=== PATIENT | female | born 1955 | race Caucasian/White ===

== ENCOUNTER 2024-03-05 13:47 | Observation (INO) | payer OTHER, SELFPAY ==
[2024-03-05] VITALS (7 sets, daily range): BP systolic 134–157; BP diastolic 71–90; PULSE 62–81; RESP 16–18; TEMP 36.5–37; O2SAT 97–100; BMI 32.4
--- NOTE | ~2024-03-05 | CT_ITS ---
EXAMINATION: CT abdomen pelvis w con DATE: 03/05/2024 15:09 INDICATION: Nausea, vomiting, diarrhea and hematochezia. TECHNIQUE: Computed tomography (CT) of the abdomen and pelvis was performed with 100 mL Omnipaque-350 intravenous contrast. Automated exposure control and iterative reconstruction technique were employe d. The dose-length product was 683.61 mGy-cm. COMPARISON: 04/07/2006 FINDINGS: Lung bases are clear. A couple calcified nodules at the left lower lobe consistent with old granuloma tous disease. Heart size is normal. No pericardial or pleural effusion. Very small sliding-type hiata l hernia. Liver, gallbladder, spleen, pancreas, bilateral adrenal glands and left kidney are normal. 6 mm right renal cyst. There is moderate colonic diverticulosis with a sigmoid predominance. There i s no adjacent inflammatory change to suggest diverticulitis. Small bowel and appendix are normal. Bl adder is normal. The uterus is not identified and has likely been surgically resected. No pathologica lly enlarged abdominal or pelvic lymphadenopathy. No free intraperitoneal gas or fluid. Upper lumbar dextroscoliosis with severe spondylosis. IMPRESSION: 1. Diverticulosis without diverticulitis or other acute intra-abdominal/pelvic process. 2. Very small sliding-type hiatal hernia. Reviewed, dictated and finalized at location A.
--- NOTE | 2024-03-05 14:10 | ECG_ITS ---
Test Date: 2024-03-05 14:24:14 Measurements Intervals [place] Rate: 67 P: 18 OH: 149 QRS: 34 QRSD: 78 T: 48 QT: 385 QTc: 409 Interpretive Statements SINUS RHYTHM No previous ECG available for comparison Electronically Signed On 03-05-2024 14:50:46 CDT by Augustine Chowdhury M.D.
--- NOTE | 2024-03-05 14:11 | ED.NAVMDI ---
HPI - Nausea/Vomiting/Diarrhea General Chief complaint: Nausea/Vomiting/Diarrhea <LANI Powers Last Filed: 03/05/24 19:28> Stated complaint: check for cdiff <Mari Brooks PA-C - Last Filed: 03/05/24 19:28> Time Seen by Provider: 03/05/24 13:58 <LANI Powers Last Filed: 03/05/24 19:28> History of Present Illness HPI Narrative: 68 y/o presents to the emergency department for concerns for C diff. Patient states she has been having diarrhea for 3 days. Patient states she was treated for strep pharyngitis by her PCP with amoxicillin a week ago. States she broke out in hives few days after the amoxicillin, discontinue the amoxicillin and started on azithromycin. States 1 day later she began having copious, malodorous, bloody and mucousy diarrhea. she is advised to come to the ED for further evaluation C diff testing. She is reporting diffuse abdominal cramping that occurs after she eats food or drinks water. She reports decreased p.o. intake. States she has never had this happen before. She does endorse a history of diverticulitis and hysterectomy. She states she had a colonoscopy February 2023 at [facility] which showed IBS and diverticula . She states she did not have any polyps and has never had significantly abnormal colonoscopies. She is not anticoagulated. She is taking diclofenac for back pain. Denies alcohol use, denies melena. She denies chest pain or shortness of breath. Denies lightheadedness or syncope but does state that she feels off balance when she stands up which is new. <Mari Brooks PA-C - Last Filed: 03/05/24 19:28> Related Data Home medications: Home Medications Medication Instructions Recorded Confirmed diclofenac sodium 75 mg 75 mg PO DAILY 03/05/24 03/05/24 tablet,delayed release pravastatin 40 mg tablet 40 mg PO DAILY 03/05/24 03/05/24 <LANI Powers Last Filed: 03/05/24 19:28> Allergies/Adverse reactions: Allergies Allergy/AdvReac Type Severity Reaction Status Date / Time amantadine Allergy Unknown Other Verified 03/05/24 16:09 rofecoxib Allergy Unknown Other Verified 03/05/24 16:09 Sulfa (Sulfonamide AdvReac Mild Other Verified 03/05/24 16:09 Antibiotics) amoxicillin AdvReac Hives Verified 03/05/24 16:09 <Mari Brooks PA-C - Last Filed: 03/05/24 19:28> Review of Systems Review of Systems: All systems reviewed & are unremarkable except as noted in HPI and below <Mari Brooks PA-C - Last Filed: 03/05/24 19:28> [facility] Social History Social History: Social History Smoking status: Former smoker Alcohol intake: never Substance use: never Substance use type: does not use Do You Feel Safe in your Home?: Yes Lack of Transportation: No Lack of Food: Never True Current Housing: I Have Housing Concerned About Future Housing: No Difficulty Paying Gas/Electric Bills: No Difficulty Paying for Meds: No Currently Unemployed: No Education: Don't Know Difficulty w/ Childcare or Family Care: No Spiritual care concerns: No <Mari Brooks PA-C - Last Filed: 03/05/24 19:28> Exam Narrative: GENERAL: Well-appearing, well-nourished, and in no acute distress. HEAD: Normocephalic, atraumatic. EYES: PERRLA and EOMI. ENT: Nares clear, no rhinorrhea or epistaxis. Mucous membranes moist. NECK: Supple. CHEST: Clear to auscultation. No respiratory distress. HEART: Regular rate and rhythm. No murmur heard. Normal peripheral pulses. ABDOMEN: Soft, nontender, nondistended, normal active bowel sounds. No rebound, guarding or rigidity. Rectal exam chaperoned by Muna Sánchez which shows gross hematochezia surrounding the anus, positive Hemoccult. No melena. Very small hemorrhoid that is nonthrombosed and nontender. EXTREMITIES: Normal range of motion. No edema. SKIN: Warm, dry, no rash. NEURO: No focal defici
[2024-03-05] MEDS: SODIUM CHLORIDE 0.9% IV 1,000 ML 999 ML IV CONT (14:36)
[2024-03-05 14:43] LABS: Basophils Absolute Auto 0.1 K/mm3 (0.0-0.1); Basophils Percent Auto 0.8 % (0.2-1.2); Eosinophils Absolute Auto 0.3 K/mm3 (0-0.3); Eosinophils Percent Auto 3.5 % (0-4.4); Hematocrit 46.2 % (37.0-47.0); Hemoglobin 15.1 g/dL (12.0-15.0); Immature Granulocyte Absolute 0.02 K/mm3 (0.00-0.031); Immature Granulocyte Percent A 0.3 % (0-0.5); Lymphocytes Absolute Auto 3.26 K/mm3 (0.9-3.2); Lymphocytes Percent Auto 41.3 % (18.3-44.2); Mean Corpuscular HGB Conc 32.7 g/dl (32-36); Mean Corpuscular Hemoglobin 30.9 pg (26-34); Mean Corpuscular Volume 94.7 fl (80-100); Mean Platelet Volume 9.4 fl (7.4-10.4); Monocytes Absolute Auto 0.6 K/mm3 (0.1-0.6); Monocytes Percent Auto 7.4 % (2.6-8.5); Neutrophils Absolute Auto 3.7 K/mm3 (1.3-6.7); Neutrophils Percent Auto 46.7 % (45.5-73.1); Platelet Count Result 308 k/mm3 (150-375); Red Blood Count 4.88 M/mm3 (4.2-5.4); Red Cell Distribution Width 13.5 % (11.5-14.5); White Blood Count 7.9 K/mm3 (4.5-10.0)
[2024-03-05 14:58] LABS: Alanine Aminotransferase 23 U/L (6-35); Albumin Level 4.5 g/dL (3.5-5.1); Alkaline Phosphatase 77 U/L (38-126); Anion Gap 11 mmol/L (4-12); Aspartate Amino Transferase 23 U/L (14-36); Bilirubin,Total 0.4 mg/dL (0.2-1.3); Blood Urea Nitrogen 17 mg/dL (7-17); Calcium 9.1 mg/dL (8.4-10.2); Carbon Dioxide 23 mmol/L (22-30); Chloride 104 mmol/L (98-107); Estimated CRCL calculation 58 ml/min; Estimated Glomerular Filt Rate > 60; Glucose 97 mg/dL (65-110); Lipase 57 U/L (23-300); Sodium 138 mmol/L (137-145)
[2024-03-05 14:59] LABS: Lactic Acid Reflex 0.9 mmol/L (0.7-2.0)
[2024-03-05 16:13] LABS: Appearance Urine Sl Cloudy (Clear); Color Urine Yellow (Yellow)
[2024-03-05 16:14] LABS: Glucose Urine UA Negative (Negative); Protein Urine Negative (Negative); Specific Grav Ur 1.015 (1.001-1.035)
[2024-03-05 16:15] LABS: Bilirubin Urine Negative (Negative); Blood Urine Trace-intact (Negative); Ketones Urine Negative (Negative); Nitrate Urine Negative (Negative); Urobilinogen Urine 0.2 mg/dL (<2.0)
[2024-03-05 16:16] LABS: Add Urine Microscopic? YES; Leukocyte Esterase Ur 2+ LEU/UL (Negative)
[2024-03-05 16:17] LABS: RBC Urine 0-2 /hpf (0-2); WBC Urine 51-75 /hpf (0-3)
[2024-03-05 16:18] LABS: Bacteria Urine 1+ /hpf; Squamous Epithelial Cell Urine Occasional /hpf (Few)
[2024-03-05 16:34] LABS: Hematocrit 43.5 % (37.0-47.0); Hemoglobin 14.7 g/dL (12.0-15.0)
--- NOTE | 2024-03-05 17:01 | PM.IMHP ---
H&P: HPI History of Present Illness Date/Time: 03/05/24 17:00 Chief Complaint: Diarrhea. Narrative: This is a very pleasant 68-year-old with history of diverticulosis and diverticulitis who presented to the emergency department for evaluation of diarrhea. The patient provides the following history. She was diagnosed with strep throat last week and was prescribed amoxicillin which she for 4 days before developing hives. At that time she was prescribed a Z-Enzo and 2 days after starting it she developed cramping abdominal pain and diarrhea admixed with mucus. She has since started passing bright red blood per rectum which is painless. After speaking with her doctor she was referred to the ED for further evaluation. She denies fever, vomiting, and dysuria. Her abdominal pain is not localized she states not feel like previous episodes of diverticulitis. To her knowledge she does not have a history of internal hemorrhoids. Weight has remained stable. No history of colon cancer or inflammatory bowel disease. She denies recent travel and sick contacts. In the ED: She was afebrile on arrival with stable vital signs. Hemoglobin and hematocrit were 15.1 and 46.2% respectively. The remainder of her labs were unremarkable. Urinalysis showed trace blood, 2+ leukocyte esterase, 51 to 75 wbc's, and trace bacteria. CT of the abdomen and pelvis showed diverticulosis without diverticulitis or other acute intra-abdominal/pelvic process any very small sliding-type hiatal hernia. She was given a L normal saline is being admitted in this setting for close monitoring and GI consult. Review of Systems Review of Systems: 12 systems were reviewed and are negative except for as per HPI. [facility], [facility] Past Medical History Medical History (Updated 03/05/24 @ 23:08 by Jamee Martines PA-C) Arthritis Diverticulitis Hyperlipidemia Social History Social History (Updated 03/05/24 @ 23:07 by Jamee Martines PA-C) Social History: Surrogate medical decision maker: Blair Schafer, sony. Code status: Full code. Smoking status: Former smoker Alcohol intake: never Substance use: never Substance use type: does not use Do You Feel Safe in your Home?: Yes Lack of Transportation: No Lack of Food: Never True Current Housing: I Have Housing Concerned About Future Housing: No Difficulty Paying Gas/Electric Bills: No Difficulty Paying for Meds: No Currently Unemployed: No Education: Don't Know Difficulty w/ Childcare or Family Care: No Spiritual care concerns: No Meds Home Medications and Allergies Home Medications Medication Instructions Recorded Confirmed Type diclofenac sodium 75 mg 75 mg PO DAILY 03/05/24 03/05/24 History tablet,delayed release pravastatin 40 mg tablet 40 mg PO DAILY 03/05/24 03/05/24 History Allergies Allergy/AdvReac Type Severity Reaction Status Date / Time amantadine Allergy Unknown Other Verified 03/05/24 16:09 rofecoxib Allergy Unknown Other Verified 03/05/24 16:09 Sulfa (Sulfonamide AdvReac Mild Other Verified 03/05/24 16:09 Antibiotics) amoxicillin AdvReac Hives Verified 03/05/24 16:09 Vital Signs Vital Signs - 24 hr 03/05/24 13:49 03/05/24 14:43 03/05/24 14:44 Temperature 97.9 F Pulse Rate 81 69 71 Respiratory Rate 16 Blood Pressure 143/77 H 138/84 134/79 Pulse Oximetry 99 Oxygen Delivery Room Air 03/05/24 14:44 03/05/24 16:40 Temperature 97.8 F Pulse Rate 78 62 Respiratory Rate 18 Blood Pressure 137/81 155/90 H Pulse Oximetry 100 Oxygen Delivery Exam Narrative: General: Well-developed, nontoxic-appearing female in the semi-Aparicio position in bed. Weight: 83 kg. BMI: 32.4. HEENT: PERRL, EOMI. Sclera anicteric. Tacky mucous membranes. Neck: Supple. Respiratory: Lungs are clear to auscultation bilaterally. Cardiovascular: Regular rate and rhythm with S1-S2. Gastrointestinal: Abdomen is soft, nontender, and nondistended with positive julius
--- NOTE | 2024-03-05 17:24 | ADMGEN ---
This patient, Ines Schafer, was admitted to 2 Medical Room 242-. Patient/family oriented to hospital policies and general routines including ID bracelet, bed and alarms, visiting hours, pain management, procedures, bathroom and other care routines, personal items, smoking policy, room service/diet, and visiting hours. Information on how to activate the Rapid Response Team has been discussed. Patient/Family are encouraged to report perceived risks to care and to ask questions if they do not understand what they are told or what they should do.
[2024-03-05] MEDS: SODIUM CHLORIDE 0.9% IV 1,000 ML 100 ML IV CONT (17:27)
[2024-03-05 22:30] LABS: Hematocrit 40.7 % (37.0-47.0); Hemoglobin 13.6 g/dL (12.0-15.0)
[2024-03-06] VITALS: PULSE 72
[2024-03-06 04:00] VITALS: PULSE 65
[2024-03-06 04:48] VITALS: BP 149/79; PULSE 61; RESP 17; TEMP 36.6; O2SAT 98
[2024-03-06 06:37] LABS: Hematocrit 42.3 % (37.0-47.0); Hemoglobin 13.9 g/dL (12.0-15.0); Mean Corpuscular HGB Conc 32.9 g/dl (32-36); Mean Corpuscular Hemoglobin 31.9 pg (26-34); Mean Platelet Volume 9.9 fl (7.4-10.4); Platelet Count Result 270 k/mm3 (150-375); Red Blood Count 4.36 M/mm3 (4.2-5.4); Red Cell Distribution Width 13.6 % (11.5-14.5); White Blood Count 7.1 K/mm3 (4.5-10.0)
[2024-03-06 06:51] LABS: Anion Gap 9 mmol/L (4-12); Blood Urea Nitrogen 18 mg/dL (7-17); Calcium 8.5 mg/dL (8.4-10.2); Carbon Dioxide 24 mmol/L (22-30); Chloride 106 mmol/L (98-107); Estimated CRCL calculation 58 ml/min; Estimated Glomerular Filt Rate > 60; Glucose 104 mg/dL (65-110); Magnesium 2.1 mg/dL (1.6-2.3); Potassium 4.1 mmol/L (3.4-5.0); Sodium 139 mmol/L (137-145)
[2024-03-06 08:00] VITALS: PULSE 75
[2024-03-06 08:01] VITALS: O2SAT 96
[2024-03-06] MEDS: PRAVASTATIN SODIUM 20 MG TABLET 40 MG PO (09:15)
--- NOTE | 2024-03-06 09:15 | WPDGICN ---
Assessment and Plan Assessment and plan (1) Diarrhea: Code(s): R19.7 - Diarrhea, unspecified Status: Acute Assessment and Plan: self-limited, probably induce by antibiotics she has not been able to give any more stool sample since diarrhea already stopped she can be discharged and follow-up with pcp no need to repeat colonoscopy (she has been always getting her colonoscopy on time, last time 1 year ago) (2) Diverticulosis: Code(s): K57.90 - Diverticulosis of intestine, part unspecified, without perforation or abscess without bleeding Status: Acute Assessment and Plan: no diverticulisis (3) Mucus in stool: Code(s): R19.5 - Other fecal abnormalities Status: Acute Assessment and Plan: probably scan blood in stool from frequent BM, ? perianal normal h/h (4) History of streptococcal sore throat: Code(s): Z87.09 - Personal history of other diseases of the respiratory system Status: Acute GI Consult Note Consult date/time: 03/06/24 09:15 Reason for consult: diarrhea HPI: Ines Schafer is a 68 year old female with previous history of diverticulitis and last colonoscopy about 1 year ago without polyp. Recently diagnosed with Strept throat and given amoxicillin but developed hives then her PCP prescribed Z-pack but she developed 18 hours of diarrhea with mucus and small amount of blood, her PCP advised to go to ER, CT scan no colitis, cbc/cmp normal. She was admitted but no abdominal pain and has not had any more bowel movements. Denies fever and she is back to her baseline. Review of Systems Constitutional: Constitutional: Denies headache(s) and Denies weakness Eyes: Eyes: Denies blurry vision ENT: Reports Normal hearing present, Denies headache(s) and Denies neck pain Cardiovascular: Cardiovascular: Denies chest pain and Denies dyspnea Respiratory: Respiratory: Denies dyspnea Gastrointestinal: Gastrointestinal: Reports no additional gastrointestinal complaints Genitourinary: Genitourinary: Denies dysuria Musculoskeletal: Musculoskeletal: Denies neck pain Integumentary/Breasts: Skin/Breast: Denies dry skin Neurologic: Reports Normal hearing present, Denies headache(s) and Denies weakness Psychiatric: Psychiatric: Denies anxiety Endocrine: Endocrine: Denies change in body appearance Hematologic/Lymphatic: Hematologic/Lymphatic: Denies easy bleeding Allergic/Immunologic: Allergic/Immunologic: Denies urticaria PMFSH Past Medical History Medical History (Updated 03/06/24 @ 09:22 by William Pelayo MD) Arthritis Diverticulitis History of streptococcal sore throat Hyperlipidemia Mucus in stool Social History Social History (Updated 03/05/24 @ 23:07 by Jamee Martines PA-C) Social History: Surrogate medical decision maker: Blair Schafer, son. Code status: Full code. Smoking status: Former smoker Alcohol intake: never Substance use: never Substance use type: does not use Do You Feel Safe in your Home?: Yes Lack of Transportation: No Lack of Food: Never True Current Housing: I Have Housing Concerned About Future Housing: No Difficulty Paying Gas/Electric Bills: No Difficulty Paying for Meds: No Currently Unemployed: No Education: Don't Know Difficulty w/ Childcare or Family Care: No Spiritual care concerns: No Meds Home Medications and Allergies Home Medications Medication Instructions Recorded Confirmed Type diclofenac sodium 75 mg 75 mg PO DAILY 03/05/24 03/05/24 History tablet,delayed release pravastatin 40 mg tablet 40 mg PO DAILY 03/05/24 03/05/24 History Allergies Allergy/AdvReac Type Severity Reaction Status Date / Time amantadine Allergy Unknown Other Verified 03/05/24 16:09 rofecoxib Allergy Unknown Other Verified 03/05/24 16:09 Sulfa (Sulfonamide AdvReac Mild Other Verified 03/05/24 16:09 Antibiotics) amoxicillin AdvReac Hives Verified 03/05/24
[2024-03-06 12:00] VITALS: PULSE 75
--- NOTE | 2024-03-06 14:13 | PM.DS ---
DS: Admitting Diagnosis Discharge Date 03/06/24 Admitting Diagnosis Rectal bleeding DS: Discharge Diagnosis Discharge Diagnosis (1) Hematochezia: Code(s): K92.1 - Melena Status: Acute (2) Diarrhea: Code(s): R19.7 - Diarrhea, unspecified Status: Acute (3) Diverticulosis: Code(s): K57.90 - Diverticulosis of intestine, part unspecified, without perforation or abscess without bleeding Status: Acute DS: Summary Hospital Course Reason for hospitalization: 68yo with history of diverticulosis and diverticulitis who presented to the emergency department for evaluation of diarrhea and hematochezia. Please see H&P for details. Hospital Course: In the ED, the patient was afebrile with stable vital signs. Hemoglobin and hematocrit were 15.1 and 46.2% respectively. The remainder of her labs were unremarkable. EKG was read as normal. Urinalysis showed trace blood, 2+ leukocyte esterase, 51 to 75 wbc's, and trace bacteria. UCx pending. CT of the abdomen and pelvis showed diverticulosis without diverticulitis or other acute intra-abdominal/pelvic process any very small sliding-type hiatal hernia. She was given a liter of normal saline. She was admitted to the hospital. Hemoglobin remained stable on repeat. Her diarrhea resolved. Stool studies ordered but none were able to be collected. She did have a soft, formed BM without blood on the day of discharge. GI consulted but no further recommendations given since patient's symptoms have resolved. She was able to eat and tolerate without nausea. She overall did well and was able to be discharged home on 03/06/24. Status at Discharge Cognitive/behavioral status at discharge: stable Time Spent with Patient Time attestation: Total time spent providing and/or coordinating discharge services: 28 minutes Time spent: Less than 30 minutes Exam Narrative: AF 97.9 149/79 75 17 96% ra Gen - NARD Chest - CTA bilaterally, nml RR CV - RRR S1/S2. Tele showing no significant dysrhythmias Abd - Soft, NT/ND, Positive BS Ext - No pedal edema Neuro - Alert and oriented. Nonfocal exam. Psych - Nml mood and affect Skin - Warm and dry DS: Data Data Completed and Pending Labs on day of discharge: Labs from last 24 hours 03/06/24 03/06/24 03/06/24 05:33 05:33 05:33 WBC 7.1 RBC 4.36 Hgb 13.9 Cancelled Hct 42.3 Cancelled MCV 97.0 MCH 31.9 MCHC 32.9 RDW 13.6 Plt Count 270 MPV 9.9 Immature Gran % (Auto) Neut % (Auto) Lymph % (Auto) [place] % (Auto) Eos % (Auto) Baso % (Auto) Lymph # (Auto) [facility] [facility] # (Auto) Eos # (Auto) Baso # (Auto) Abs Immat Gran (auto) Absolute Neuts (auto) Absolute Nucleated RBC Nucleated RBC % Sodium 139 Potassium 4.1 Chloride 106 Carbon Dioxide 24 Anion Gap 9 BUN 18 H Creatinine 0.80 Estim Creat Clear Calc 58 Estimated GFR > 60 Glucose 104 Lactic Acid Calcium 8.5 Magnesium 2.1 Total Bilirubin AST ALT Alkaline Phosphatase Total Protein Albumin Lipase Urine Color Urine Appearance Urine pH Ur Specific [place] Urine Protein Urine Glucose (UA) Urine Ketones Ur Blood (Man) Urine Nitrate Urine Bilirubin Urine Urobilinogen Leukocyte Esterase Rfl Urine RBC Urine WBC Ur Squamous Epith Cells Urine Bacteria 03/05/24 03/05/24 03/05/24 22:25 16:27 15:38 WBC RBC Hgb 13.6 14.7 Hct 40.7 43.5 MCV MCH MCHC RDW Plt Count MPV Immature Gran % (Auto) Neut % (Auto) Lymph % (Auto) [place] % (Auto) Eos % (Auto) Baso % (Auto) Lymph # (Auto) [place] # (Auto) Eos # (Auto) Baso # (Auto) Abs Immat Gran (auto) Absolute Neuts (auto) Absolute Nucleated RBC Nucleated RBC % Sodium Potassium Chloride Carbon Dioxide Anion Gap BUN Creatinine
--- NOTE | 2024-03-07 08:58 | PC.NURSE ---
Urine cx is negative. Dr. Gabby armstrong.
== END 2024-03-06 14:58 | disposition home or self-care (01) ==
LOC: ANHED 16:00 → ANH2MED 18:09
PROVIDERS: Physician Assistant; Admitting Provider General Practice; Emergency Provider Physician Assistant; PCP Family Medicine; Visit Provider Internal Medicine
DX: K92.1 Melena (principal); R19.7 Diarrhea, unspecified; T36.3X5A Adverse effect of macrolides, initial encounter; K57.90 Diverticulosis of intestine, part unspecified, without perforation or abscess without bleeding; Z87.09 Personal history of other diseases of the respiratory system
CPT/HCPCS: 36415; 74177; 80048; 80053; 81001; 83605; 83690; 83735; 85014; 85018; 85025; 85027; 87086; 93005; 96360; 96361; 99285; A9270; G0378; J7030; Q9967

== ENCOUNTER 2024-04-23 11:47 | Emergency (ER) | payer OTHER, SELFPAY ==
--- NOTE | ~2024-04-23 | CT_ITS ---
CT abdomen pelvis w con Ordering provider: Mary Jane Candelaria MD History: 68 years Female with . LLQ tenderness, diarrhea, hx of diverticulitis . Comparison: March 05, 2024 Technique: CT abdomen and pelvis with IV and without oral contrast. Automated exposure control and it erative reconstruction technique were employed. The dose-length product was 798.26 mGy-cm. Findings: VISUALIZED LOWER CHEST: Minimal atelectatic changes in the right lower lobe and in the middle lobe. D ependent atelectatic changes in the left lower lobe area. UPPER ABDOMINAL ORGANS: Liver: Normal. Gallbladder: Normal. Spleen: Normal. Stomach/duodenum: Small sliding hiatus hernia with thickened wall of the distal esophagus suggestive of reflux esophagitis. Pancreas: Normal. Adrenals: Normal. Kidneys: Tiny cyst in the right kidney midpole. PELVIC ORGANS: The bladder is normal. BOWEL AND MESENTERY: Colon: Thickened wall of the sigmoid colon suggestive of diverticulitis. Minimal fat stranding seen a round the sigmoid colon. Normal appendix. Small Bowel: Normal. No obstruction. Peritoneum/mesentery: No free air. Trace of Free fluid in the left paracolic gutter and in the pelvis . No mesenteric lymphadenopathy. RETROPERITONEUM: Mild atheromatous disease of the abdominal aorta. No retroperitoneal lymphadenopat hy. MUSCULOSKELETAL: Superficial soft tissues: The superficial soft tissues are normal. Bones: Moderate degenerative changes of the spine. Dextroscoliosis. Fusion of L1, L2 and L3 is noted. IMPRESSION: 1. Diverticulitis of the sigmoid colon with minimal fat stranding, thickening of the wall and minima l fluid in the left paracolic gutter and pelvis. No abscess formation seen. 2. Small sliding hiatus hernia. Reviewed, dictated and finalized at location A. IMPRESSION: 1. Diverticulitis of the sigmoid colon with minimal fat stranding, thickening of the wall and minimal fluid in the left paracolic gutter and pelvis. No absce ss formation seen. 2. Small sliding hiatus hernia.
[2024-04-23 11:50] VITALS: BP 148/72; PULSE 108; RESP 15; TEMP 36.6; O2SAT 97
[2024-04-23 12:09] VITALS: BP 149/79; PULSE 92; RESP 20; TEMP 36.6; O2SAT 97
--- NOTE | 2024-04-23 13:35 | ED.ABDPAIN ---
HPI - Abdominal Pain General Chief Complaint: Abdominal Pain Stated Complaint: abd pain Time Seen by Provider: 04/23/24 12:10 History of Present Illness HPI narrative: 68-year-old female with history of diverticulosis, hyperlipidemia presenting with abdominal pain. States that for the last several days she has had left lower quadrant pain. States that she was initially constipated so she took multiple doses of stool softener. States that she was able to go earlier today and it is now becoming looser. Continues to have a lot of her lower abdominal pain as well as pressure with urination. No nausea or vomiting. No fevers. No further complaints. Related Data Home Medications Medication Instructions Recorded Confirmed diclofenac sodium 75 mg 75 mg PO DAILY 03/05/24 03/05/24 tablet,delayed release pravastatin 40 mg tablet 40 mg PO DAILY 03/05/24 03/05/24 Allergies Allergy/AdvReac Type Severity Reaction Status Date / Time amantadine Allergy Unknown Other Verified 04/23/24 12:35 rofecoxib Allergy Unknown Other Verified 04/23/24 12:35 Sulfa (Sulfonamide AdvReac Mild Other Verified 04/23/24 12:35 Antibiotics) amoxicillin AdvReac Hives Verified 04/23/24 12:35 Review of Systems Review of Systems: All systems reviewed & are unremarkable except as noted in HPI and below PMFSH Past Medical History Medical History Arthritis Diverticulitis History of streptococcal sore throat Hyperlipidemia Mucus in stool Social History Social History Social History: Surrogate medical decision maker: Blair Schafer, son. Code status: Full code. Smoking status: Former smoker Alcohol intake: never Substance use: never Substance use type: does not use Do You Feel Safe in your Home?: Yes Lack of Transportation: No Lack of Food: Never True Current Housing: I Have Housing Concerned About Future Housing: No Difficulty Paying Gas/Electric Bills: No Difficulty Paying for Meds: No Currently Unemployed: No Education: Don't Know Difficulty w/ Childcare or Family Care: No Spiritual care concerns: No Exam Narrative: GENERAL: Nontoxic, no acute distress, pleasant cooperative HEAD: Normocephalic, atraumatic. EYES: PERRLA and EOMI. ENT: Mucous membranes moist. NECK: Supple. CHEST: No respiratory distress. HEART: Regular rate and rhythm ABDOMEN: Soft, +LLQ tenderness w/o guarding or rebound EXTREMITIES: Normal range of motion. SKIN: Warm, dry, no rash. NEURO: Alert and oriented x3. PSYCH: Normal mood and affect. Course Vital Signs Vital signs: Vital Signs Temperature 97.9 F 04/23/24 11:50 Pulse Rate 108 H 04/23/24 11:50 Respiratory Rate 15 04/23/24 11:50 Blood Pressure 148/72 H 04/23/24 11:50 Pulse Oximetry 97 04/23/24 11:50 Oxygen Delivery Room Air 04/23/24 11:50 Temperature 97.9 F 04/23/24 12:09 Pulse Rate 82 04/23/24 13:49 Respiratory Rate 16 04/23/24 13:49 Blood Pressure 143/86 H 04/23/24 13:49 Pulse Oximetry 98 04/23/24 13:49 Oxygen Delivery Room Air 04/23/24 11:50 MDM - Abdominal Pain MDM Narrative Medical decision making narrative: 68-year-old female presenting with several days of left lower quadrant pain. Vitals are within normal limits. Exam remarkable for the above. Blood work with mild leukocytosis. Lipase is normal. UA is concerning for a UTI. CT abdomen pelvis is concerning for diverticulitis without evidence of complications. Patient will be started on Flagyl and levofloxacin. She has a penicillin allergy. She feels her pain is controlled with NSAIDs. She feels safe going home and following up with her PCP which I think is reasonable. Appropriate return precautions given. Discharged in stable condition. Lab Data 04/23/24 13:47 04/23/24 13:47 Labs: Lab Results
[2024-04-23 13:49] VITALS: BP 143/86; PULSE 82; RESP 16; O2SAT 98
[2024-04-23 13:59] LABS: Basophils Percent Auto 0.3 % (0.2-1.2); Eosinophils Absolute Auto 0.1 K/mm3 (0-0.3); Eosinophils Percent Auto 0.5 % (0-4.4); Hematocrit 44.6 % (37.0-47.0); Hemoglobin 15.1 g/dL (12.0-15.0); Immature Granulocyte Absolute 0.04 K/mm3 (0.00-0.031); Immature Granulocyte Percent A 0.4 % (0-0.5); Lymphocytes Absolute Auto 1.87 K/mm3 (0.9-3.2); Mean Corpuscular HGB Conc 33.9 g/dl (32-36); Mean Corpuscular Hemoglobin 31.9 pg (26-34); Mean Corpuscular Volume 94.3 fl (80-100); Mean Platelet Volume 10.5 fl (7.4-10.4); Monocytes Absolute Auto 0.7 K/mm3 (0.1-0.6); Monocytes Percent Auto 6.2 % (2.6-8.5); Neutrophils Absolute Auto 8.3 K/mm3 (1.3-6.7); Neutrophils Percent Auto 75.6 % (45.5-73.1); Platelet Count Result 277 k/mm3 (150-375); Red Blood Count 4.73 M/mm3 (4.2-5.4); Red Cell Distribution Width 13.7 % (11.5-14.5)
[2024-04-23 14:08] LABS: Alanine Aminotransferase 24 U/L (6-35); Albumin Level 4.4 g/dL (3.5-5.1); Alkaline Phosphatase 69 U/L (38-126); Anion Gap 9 mmol/L (4-12); Aspartate Amino Transferase 23 U/L (14-36); Bilirubin,Total 0.7 mg/dL (0.2-1.3); Blood Urea Nitrogen 13 mg/dL (7-17); Calcium 9.2 mg/dL (8.4-10.2); Carbon Dioxide 26 mmol/L (22-30); Chloride 104 mmol/L (98-107); Estimated CRCL calculation 58 ml/min; Estimated Glomerular Filt Rate > 60; Glucose 147 mg/dL (65-110); Lipase 66 U/L (23-300); Potassium 3.8 mmol/L (3.4-5.0); Sodium 139 mmol/L (137-145)
[2024-04-23 15:03] LABS: Add Urine Microscopic? YES; Appearance Urine Clear (Clear); Bacteria Urine Rare /hpf; Bilirubin Urine Negative (Negative); Blood Urine Negative (Negative); Color Urine Yellow (Yellow); Glucose Urine UA Negative (Negative); Ketones Urine Negative (Negative); Leukocyte Esterase Ur 1+ LEU/UL (Negative); Nitrate Urine Negative (Negative); Non Pathogenic Casts 0-2; Protein Urine Negative (Negative); RBC Urine 0-2 /hpf (0-2); Squamous Epithelial Cell Urine Few /hpf (Few); Urobilinogen Urine 0.2 mg/dL (<2.0); WBC Urine 21-50 /hpf (0-3)
[2024-04-23] MEDS: metroNIDAZOLE 500 MG TABLET PO (15:23)
[2024-04-23] MEDS: levoFLOXacin 750 MG TABLET PO (15:24)
== END 2024-04-23 16:05 | disposition home or self-care (01) ==
PROVIDERS: Emergency Provider Emergency Medicine; PCP Family Medicine
DX: K57.92 Diverticulitis of intestine, part unspecified, without perforation or abscess without bleeding (principal); N39.0 Urinary tract infection, site not specified; E78.5 Hyperlipidemia, unspecified; Z87.891 Personal history of nicotine dependence
CPT/HCPCS: 36415; 74177; 80053; 81001; 83690; 85025; 87086; 99284; A9270; Q9967